=== PATIENT | female | born 1975 | race Caucasian/White ===

== ENCOUNTER 2017-08-23 17:52 | Emergency (ER) | payer OTHER, MEDICAID | END 2017-08-23 19:44 | disposition home or self-care (01) | LOC: E/R 19:44 | DX: L73.9 Follicular disorder, unspecified (principal); D17.9 Benign lipomatous neoplasm, unspecified | CPT/HCPCS: 99284; Z7502 ==

== ENCOUNTER 2018-01-26 11:20 | Emergency (ER) | payer MEDICAID, OTHER ==
[2018-01-26 12:02] LABS: URINE BLOOD (Dip) POC 2+ (NEGATIVE); URINE GLUCOSE (Dip) POC Negative (NEGATIVE); URINE KETONES (Dip) POC Trace (NEGATIVE); URINE LEUKOCYTE EST (Dip) POC Negative (NEGATIVE); URINE NITRITE (Dip) POC Negative (NEGATIVE); URINE TOTAL PROTEIN POC Trace (NEGATIVE)
[2018-01-26] MEDS: ONDANSETRON 4 MG INJ IV (12:13)
[2018-01-26] MEDS: CIPROFLOXACIN 500 MG TAB PO (12:13)
[2018-01-26] MEDS: SOD CHLORIDE 0.9% 1,000 ML IV ×2 (12:14→13:55)
[2018-01-26 12:25] LABS: ADD MAN DIFF? NO
[2018-01-26 12:29] LABS: WHITE BLOOD COUNT 21.2 10^3/ul (4.8-10.8)
[2018-01-26 12:29] LABS: ABNORMAL IP MESSAGE 1; BASOPHIL # 0.1 10^3/ul (0.0-0.1); BASOPHILS % 0.2 % (0.0-2.0); HEMATOCRIT 43.9 % (37.0-47.0); HEMOGLOBIN 14.9 g/dl (12.0-16.0); LYMPHOCYTES # 0.5 10^3/ul (0.8-2.9); LYMPHOCYTES % 2.3 % (15.0-51.0); MEAN CORPUSCULAR HGB CONC 33.9 g/dl (32.0-37.0); MEAN CORPUSCULAR VOLUME 85.4 fl (82.0-101.0); MEAN PLATELET VOLUME 12.3 fl (7.4-10.4); MONOCYTE # 1.5 10^3/ul (0.3-0.9); MONOCYTES % 7.2 % (0.0-11.0); NEUTROPHIL # 19.1 10^3/ul (1.6-7.5); NEUTROPHILS % 89.9 % (39.0-77.0); PLATELET COUNT 236 10^3/UL (140-415); RED BLOOD COUNT 5.14 10^6/ul (4.20-5.40); RED CELL DISTRIBUTION WIDTH 12.7 % (11.5-14.5)
[2018-01-26 12:37] LABS: POSITIVE DIFF @See below
[2018-01-26 12:52] LABS: ALANINE AMINOTRANSFERASE 32 IU/L (13-69); ALBUMIN 4.8 g/dl (3.3-4.9); ALBUMIN/GLOBULIN RATIO 1.33; ALKALINE PHOSPHATASE 89 IU/L (42-121); ANION GAP 16 (8-16); ASPARTATE AMINO TRANSFERASE 47 IU/L (15-46); BILIRUBIN,INDIRECT 0.8 mg/dl (0-1.1); BILIRUBIN,TOTAL 0.8 mg/dl (0.2-1.3); BLOOD UREA NITROGEN 9 mg/dl (7-20); CALCIUM 9.5 mg/dl (8.4-10.2); CARBON DIOXIDE 22 mmol/L (21-31); CHLORIDE 106 mmol/L (97-110); CREATININE 0.55 mg/dl (0.44-1.00); GLUCOSE 107 mg/dl (70-220); LIPASE 50 U/L (23-300); POTASSIUM 3.7 mmol/L (3.5-5.1); SODIUM 140 mmol/L (135-144); TOTAL PROTEIN 8.4 g/dl (6.1-8.1)
[2018-01-26] MEDS: ERTAPENEM SODIUM 1 GM in SOD CHLORIDE 0.9% 100 ML IVPB (14:05)
[2018-01-26] MEDS: KETOROLAC 30 MG INJ IV (14:22)
[2018-01-26] MEDS: morphine 2 MG INJ IV (14:37)
== END 2018-01-26 15:56 | disposition home or self-care (01) ==
LOC: FTE 11:20
DX: E86.0 Dehydration (principal); A08.4 Viral intestinal infection, unspecified
CPT/HCPCS: 74176; 80053; 81003; 81025; 83690; 85025; 96361; 96365; 96375; 99285-25

== ENCOUNTER 2018-05-28 20:54 | Emergency (ER) | payer MEDICAID ==
[2018-05-28] MEDS: DEXAMETHASONE 10 MG/ML 1 ML INJ IM (23:08)
== END 2018-05-28 23:19 | disposition home or self-care (01) ==
LOC: FTE 20:54
DX: R21 Rash and other nonspecific skin eruption (principal)
CPT/HCPCS: 96372; 99284-25

== ENCOUNTER 2018-12-23 18:52 | Emergency (ER) | payer MEDICAID ==
[2018-12-23 20:12] LABS: ADD UMIC YES; UR ASCORBIC ACID NEGATIVE (NEGATIVE); UR BILIRUBIN (Dip) NEGATIVE (NEGATIVE); UR BLOOD (Dip) NEGATIVE (NEGATIVE); UR CLARITY CLEAR (CLEAR); UR COLOR YELLOW (YELLOW); UR GLUCOSE (Dip) NEGATIVE (NEGATIVE); UR KETONES (Dip) NEGATIVE (NEGATIVE); UR LEUKOCYTE ESTERASE (Dip) 1+ Leu/ul (NEGATIVE); UR NITRITE (Dip) NEGATIVE (NEGATIVE); UR RBC 2 /HPF (0-5); UR SPECIFIC GRAVITY (Dip) 1.016 (1.003-1.030); UR TOTAL PROTEIN (Dip) NEGATIVE (NEGATIVE); UR UROBILINOGEN (Dip) NEGATIVE (NEGATIVE); UR WBC 42 /HPF (0-5)
== END 2018-12-23 20:37 | disposition home or self-care (01) ==
LOC: FTE 18:52
DX: R30.0 Dysuria (principal)
CPT/HCPCS: 81001; 99283